=== PATIENT | female | born 2000 | race Caucasian/White ===

== ENCOUNTER 2022-04-21 19:47 | Inpatient (IN) ==
[2022-04-21 17:57] LABS: Basophils % 0.4 %; Eosinophils % 0.3 %; Hematocrit 34.7 % (35.3-44.9); Hemoglobin 11.3 g/dL (11.5-15.4); Immature Granulocytes % 1.2 % (0-4); Lymphocytes % 18.5 %; Mean Corpuscular HGB Conc 32.6 g/dL (31.6-35.5); Mean Corpuscular Hemoglobin 26.2 pg (28.0-33.3); Mean Corpuscular Volume 80.5 fL (83.0-100.0); Mean Platelet Volume 12.6 fL (9.4-12.4); Monocytes # 0.7 K/mcL (0.0-1.3); Monocytes % 6.3 %; Neutrophils # 7.8 K/mcL (1.6-8.9); Platelet Count 263 K/mcL (140-400); Red Blood Count 4.31 M/mcL (3.82-4.97); Red Cell Distribution Width 14.2 % (11.5-14.5); Segmented Neutrophils % 73.3 %; White Blood Count 10.6 K/mcL (4.3-11.1)
[2022-04-21 18:03] LABS: Amphetamine Screen,Urine Negative ng/mL (Cutoff=1000); Barbiturate Screen,Urine Negative ng/mL (Cutoff=200); Benzodiazepines Screen,Urine Negative ng/mL (Cutoff=200); Cannabinoid Screen,Urine Negative ng/mL (Cutoff = 50); Cocaine Screen,Urine Negative ng/mL (Cutoff= 300); Opiate Screen,Urine Negative ng/mL (Cutoff=300); Phencyclidine Screen,Urine Negative ng/mL (Cutoff=25)
[~2022-04-21 19:47] MED LIST: *HR* FentaNYL (PF) 100 MCG/2 ML VIAL EP ONE; *HR* FentaNYL (PF) 100 MCG/2 ML VIAL ONE; *HR* Nalbuphine 10 MG/ML AMPUL IV PRN; Azithromycin 500 MG in 0.9 % Sodium Chloride 250 ML IVPB PRN; EPHEDrine 50 MG/ML VIAL IVP PRN; Epidural Premix (fent/bupiv) 110 ML EP SCH; Famotidine 20 MG/2 ML VIAL IVP PRN; Lidocaine 1% 20 ML MDV INFILT PRN; Metoclopramide 10 MG/2 ML VIAL IVP PRN; Naloxone 0.4 MG/ML INJ IVP PRN; Ondansetron 4 MG/2 ML VIAL IVP PRN; Oxytocin 30 UNIT/503 ML BAG IVC SCH; Ringers Solution, Lactated 1,000 ML IVC SCH; Ropivacaine/PF 0.2% 20 ML VIAL EP ONE
[2022-04-21] MEDS ORDERED: Ibuprofen 600 MG TABLET PO ONE (23:02)
[2022-04-22] MEDS ORDERED: Measles/Mumps/Rubella Vacc 0.5 ML VIAL SQ PRN (01:00)
[2022-04-22] MEDS ORDERED: Benzocaine/Menthol 56 GM AEROSOL SPRAY TP PRN (01:00)
[2022-04-22] MEDS ORDERED: OXYTOCIN/RINGERS LACTATE 10 UNIT/166.6 ML BAG IVC ONE (01:00)
[2022-04-22] MEDS ORDERED: Ondansetron ODT 4 MG TAB.RAPDIS SL PRN (01:00)
[2022-04-22] MEDS ORDERED: Rho Immune Globulin 1,500 UNIT SYRINGE IM PRN (01:00)
[2022-04-22] MEDS ORDERED: Lanolin 7 G OINT...G. TP PRN (01:00)
[2022-04-22] MEDS ORDERED: Oxytocin 30 UNIT/503 ML BAG IVC SCH (01:00)
[2022-04-22] MEDS: Acetaminophen 325 MG TABLET PO SCH ×4 (03:31→20:23)
[2022-04-22 06:19] LABS: Basophils % 0.1 %; Hematocrit 32.9 % (35.3-44.9); Hemoglobin 10.6 g/dL (11.5-15.4); Lymphocytes # 1.7 K/mcL (0.6-4.6); Lymphocytes % 7.2 %; Mean Corpuscular HGB Conc 32.2 g/dL (31.6-35.5); Mean Corpuscular Hemoglobin 25.9 pg (28.0-33.3); Mean Corpuscular Volume 80.2 fL (83.0-100.0); Mean Platelet Volume 12.6 fL (9.4-12.4); Monocytes # 1.3 K/mcL (0.0-1.3); Monocytes % 5.4 %; Neutrophils # 20.4 K/mcL (1.6-8.9); Platelet Count 262 K/mcL (140-400); Red Cell Distribution Width 14.5 % (11.5-14.5); Segmented Neutrophils % 86.3 %
[2022-04-22 06:20] LABS: White Blood Count 23.6 K/mcL (4.3-11.1)
[2022-04-22] MEDS: Ibuprofen 600 MG TABLET PO SCH ×4 (08:51→20:24)
[2022-04-22] MEDS ORDERED: Prenatal Vit/FA 1 EACH TABLET PO SCH (09:00)
[2022-04-22] MEDS ORDERED: Ibuprofen 600 MG TABLET PO ONE (20:22)
[2022-04-22] MEDS ORDERED: Acetaminophen 325 MG TABLET PO ONE (20:22)
[2022-04-22 20:29] VITALS: BP 121/78; PULSE 75; TEMP 98.5; O2SAT 99
== END 2022-04-23 00:05 | disposition home or self-care (01) | DRG 560 ==
LOC: 1NENULAB → 1NENUOBS 04-22 01:01
PROVIDERS: ADMIT Registered Nurse; ATTEND Registered Nurse